=== PATIENT | female | born 1960 | race Caucasian/White ===

== ENCOUNTER → 2025-11-29 12:39 | Outpatient (REF) | payer MEDICARE, OTHER, SELFPAY ==
[2025-11-29 13:20] LABS: Hematocrit 37.8 % (37.0-47.0); Hemoglobin 12.8 g/dL (12.0-16.0); Mean Corp Hgb Conc. 33.9 g/dL (33.0-37.0); Mean Corpuscular Volume 93.3 fL (81.0-99.0); Nucleated Red Blood Cells % 0 %; Platelet Count 167 10^3/uL (130-400); Red Cell Dist. Width 13.9 % (11.5-14.5)
[2025-11-29 13:32] LABS: INR 1.32; PT 16.5 Sec (11.4-14.6)
[2025-11-29 13:37] LABS: ALT (SGPT) 22 U/L (0-35); AST (SGOT) 27 U/L (14-36); Albumin 4.5 g/dl (3.5-5.0); Alkaline Phosphatase 81 U/L (38-126); Blood Urea Nitrogen 18 mg/dl (7-17); Calcium 9.6 mg/dl (8.4-10.2); Carbon Dioxide 27 mmol/L (22-30); Chloride 104 mmol/L (98-107); Glucose 105 mg/dl (70-99); Magnesium 2.0 mg/dl (1.6-2.3); Potassium 3.5 mmol/L (3.5-5.1); Sodium 138 mmol/L (135-145); Total Protein 7.9 g/dl (6.3-8.2); eGFR > 60.00
== END ==
LOC: SDSPAT 12:39
PROVIDERS: ATTENDING PHYSICIAN Internal Medicine Cardiovascular Disease; FAMILY PHYSICIAN Family Medicine; OTHER PHYSICIAN Internal Medicine Interventional Cardiology
DX: I48.91 Unspecified atrial fibrillation (principal)
CPT/HCPCS: 36415; 75572; 80053; 83735; 85025; 85610; 86850; 86900; 86901; 93005; Q9967

== ENCOUNTER 2025-11-30 06:09 | Day surgery (SDC) | payer MEDICARE, OTHER, SELFPAY ==
[2025-11-29 12:55] VITALS: BMI 35.0
[2025-11-30] VITALS (12 sets, daily range): BP systolic 89–136; BP diastolic 57–102
--- NOTE | 2025-11-30 07:56 | ITS.CL.ABL ---
[employer] - Ablation
Ablation
Procedure Report:
Primary Benefit Director: Dr Bakari Shearer
Procedure Date: 11/30/2025
Patient History:
Patient is a pleasant 65-year-old female with a past medical history significant for hypertension, hyperlipidemia, obesity, mild sleep apnea, symptomatic persistent atrial fibrillation.
See H&P for complete details.
Indication:
Symptomatic persistent atrial fibrillation
Arrhythmia Specific History:
Prior Medical Therapies for Rate and Rhythm Control:
X Beta-naeem
[ ] Calcium channel-naeem
[ ] Amiodarone
[ ] Dronederone
[ ] Sotalol
[ ] Flecainide
[ ] Dofetilide
[ ] Options limited by bradycardia
[ ] Options limited by comorbid renal disease
Prior Procedural Therapies for AF/AFL:
X Cardioversion
[ ] Pulmonary Vein Isolation
[ ] Posterior Wall Isolation
[ ] Additional lines (Specify)
[ ] Surgical Ambrosio-MAZE or PVI (Specify)
Procedure Performed:
X AF ablation procedure (83473) -- includes LA/CS pacing, trans-septal, 3D mapping, + ICE
[ ] +IV drug (43428)
[ ] +Other Arrhythmia (76387)
X +Other AF Line/ablation (07337) x2 - posterior wall isolation, floor line, roof line
Risks and expected recovery has been explained in detail. Alternative options have been explored, and in a shared-decision making fashion we have decided that this was the most appropriate procedure.
Method
NPO status confirmed. Grounding pad applied. Defibrillator pads applied. Continuous surface ECG, pulse oximetry, and blood pressure were monitored. Procedure was performed under general anesthesia, with anesthesia services.
Both groins were clipped, prepped with Chloraprep, and draped in sterile fashion. Time out was called. Local anesthesia administered. The right femoral vein was accessed for catheter placement, using ultrasound guidance (images saved to record),
micro-puncture needle/wire, and modified seldinger technique. 3 sheaths were placed. The following catheters were used:
[ ] Tacticath SE (D/F Curve) ablation catheter
X Viewflex 9Fr ICE catheter
X Inquiry decapolar 6Fr diagnostic catheter
[ ] CRD Hex 6Fr
X Agilis NXT 13 Fr with PulseSelect PFA Catheter
X Advisor HD Grid Mapping Catheter, SE
[ ] Acuson AcuNav 8 Fr ICE catheter
[ ]Other: [ ]
Intracardiac ultrasound (ICE) was carefully advanced into the right atrium to guide sheath placement over a J-wire, catheter placement, guide trans-septal puncture, identify potential complications, identify anatomic structures and ensure proper
contact between ablation catheter and tissue.
Heparin was given prior to trans-septal puncture. Heparin was given to achieve and maintain a target ACT of 300-400 seconds throughout the procedure.
Trans-septal access was performed under ICE guidance. The trans-septal puncture was performed with a SafeSept wire through a Brockenbrough needle assembly through the steerable sheath. The wire was visualized as it entered the LSPV and system
advanced under ICE guidance and fluoroscopy into the LA. The Brockenbrough needle assembly, SafeSept wire and sheath dilator were removed under negative pressure. LA pressure was measured and recorded.
ICE and 3D mapping was performed to identify relevant cardiac structures. A careful 3D map was created to assess for regions of low-voltage and abnormal electrogram signals using HD grid mapping catheter and PulseSelect catheter. Additional mapping
was performed as outlined below. Initial cardioversion was attempted with a 200 J synchronous direct-current cardioversion this was unsuccessful worship of sinus rhythm and a subsequent 360 J synchronous direct-current cardioversion also failed
worship of sinus rhythm.
Prior to ablation, glycopyrrolate was provided. PulseSelect catheter was advanced over J-wire to the ostium of each vein. Pulmonary vein isolation was performed with ostial and antral lesions in a circumferential manner. Contact was visualized via
EAM, ICE, fluoroscopy, and EGM signals.
After accomplishing pulmonary venous isolation, mapping identified additional areas likely to be extra PV contributors to atrial fibrillation. These areas demonstrated patchy low voltage as well as complex fractionated electrograms. These areas can
be sites for the formation of rotors which can drive and maintain atrial fibrillation. These areas are known to be significant contributors to initiation and perpetuation of atrial fibrillation.
Additional energy applications/additional ablation sets targeted extra PV contributors to atrial fibrillation.
Targets for additional PFA ablation included: LA posterior wall targeted with pulsed electric field energy isolating the posterior wall of the left atrium. Posterior wall isolation was performed by anchoring the J-wire within the pulmonary vein and
placing the PulseSelect catheter in contact posterior wall as visualized by aforementioned methods.
After ablation of the posterior wall, targets remained including:
- Inferior LA floor
- Anterior LA roof
These areas were ablated using pulsed electric field energy eliminating the extra PV contributors to atrial fibrillation.
Following completion of ablation lesions, sinus rhythm was restored with a 360J synchronized DCCV and a post-ablation voltage/activation map was performed in sinus rhythm. Acute reconnection was noted at the left inferior pulmonary vein and on
posterior wall. Pulselike cath was reintroduced in the left atrium and pulmonary vein isolation completed left inferior pulmonary vein with repeat lesions on the posterior wall. HD grid was reintroduced in the left atrium and entrance and exit
block were confirmed for each vein and the posterior wall.
Catheter and sheath were removed from the left atrium and post-ablation intracardiac echo evaluation was consistent with pre-ablation with no changes and no pericardial effusion and there is no left atrial thrombus or left ventricle thrombus seen.
Electrophysiology study was performed. Hemostasis was obtained with figure of 8 stitch for each groin and with manual pressure. Protamine was used for reversal.
Estimated Blood Loss
5 mL
Complications
None
Fluoroscopy: 2.2 minutes; 10.2 mGy; DAP 1.24
LA Pressure: Pre 12 mmHg, post 16 mmHg
Baseline Intervals:
Rhythm: AF
QRS: 92 ms
Post-Procedure Intervals:
DC: 161 ms
QRS: 90 ms
QT: 514 ms
QTc: 457 ms
AVWB: 430 ms
AVNERP: 600/390 ms
Recommendations
- Bedrest with straight-leg precautions as ordered
- Anticipate same day discharge if patient meeting clinical metrics
- Resume home medications as indicated
- Ok to resume anticoagulation tonight if patient and groin sites stable
- Plan for follow-up in office as scheduled
Bob Joe DO, FACC, FHRS
Clinical Cardiac Interventional Radiology Technologist
cc: Dr Meri Henderson; Dr Bakari Shearer
[2025-11-30 08:42] LABS: ACT-LR - POC 387 Seconds (116-155)
[2025-11-30 08:58] LABS: ACT-LR - POC 297 Seconds (116-155)
[2025-11-30 09:15] LABS: ACT-LR - POC 382 Seconds (116-155)
[2025-11-30 09:34] LABS: ACT-LR - POC 371 Seconds (116-155)
[2025-11-30 10:00] LABS: ACT-LR - POC 335 Seconds (116-155)
[2025-11-30 10:09] LABS: ACT-LR - POC 136 Seconds (116-155)
[2025-11-30 11:40] LABS: ACT-LR - POC > 397 Seconds (116-155)
--- NOTE | 2025-11-30 15:09 | W.PN.UPDATE ---
Update Note
Progress Note Update
65 yo WF s/p PVI (same day). She denies cp, sob, raphael diet, voiding, EKG SB, R fem site c/d/i no HT. She will resume Eliquis tonight and continue metoprolol. The incidental finding of thyroid nodule on CT scan was explained to her by Dr. Joe. She
will f/u with her PCP for further testing. Activity restrictions reviewed. She will f/u Dr. Shearer in 1 mo. She is for d/c home after 3pm.
== END 2025-11-30 15:00 | disposition home or self-care (01) ==
LOC: CATH 06:09
PROVIDERS: ATTENDING PHYSICIAN Internal Medicine Cardiovascular Disease; FAMILY PHYSICIAN Family Medicine; OTHER PHYSICIAN Internal Medicine Interventional Cardiology
DX: I48.19 Other persistent atrial fibrillation (principal); R00.2 Palpitations; I10 Essential (primary) hypertension; E78.5 Hyperlipidemia, unspecified; G47.33 Obstructive sleep apnea (adult) (pediatric); Z86.0100 Personal history of colon polyps, unspecified; Z96.653 Presence of artificial knee joint, bilateral; M19.90 Unspecified osteoarthritis, unspecified site; Z96.642 Presence of left artificial hip joint; E66.9 Obesity, unspecified; Z68.35 Body mass index [BMI] 35.0-35.9, adult; I83.90 Asymptomatic varicose veins of unspecified lower extremity; Z79.899 Other long term (current) drug therapy; Z79.01 Long term (current) use of anticoagulants; Z90.49 Acquired absence of other specified parts of digestive tract; Z90.710 Acquired absence of both cervix and uterus
CPT/HCPCS: C1733; C1766; C1732; C1894; C1730; C1769; C1759; 85347; 86900; 86901; 93005; 93656; 93657